=== PATIENT | female | born 1975 | race African-American/Black ===

== ENCOUNTER 2017-04-13 16:57 | Emergency (ER) | payer OTHER ==
[2017-04-13 17:24] VITALS: BP 122/71
[2017-04-13] MEDS ORDERED: IBUPROFEN 600 MG TABLET PO ONE (17:57)
[2017-04-13] MEDS ORDERED: CYCLOBENZAPRINE HCL 10 MG TABLET PO ONE (17:57)
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
== END 2017-04-13 18:11 | disposition home or self-care (01) ==
LOC: ER 16:57
DX: S39.012A Strain of muscle, fascia and tendon of lower back, initial encounter (principal); R51 Headache; M79.602 Pain in left arm; M54.2 Cervicalgia; M54.9 Dorsalgia, unspecified; M54.5 Low back pain; F17.210 Nicotine dependence, cigarettes, uncomplicated; V87.7XXA Person injured in collision between other specified motor vehicles (traffic), initial encounter
CPT/HCPCS: 99283

== ENCOUNTER 2018-11-06 04:09 | Emergency (ER) | payer OTHER ==
[2018-11-06 04:17] VITALS: BP 118/63
[2018-11-06] MEDS ORDERED: ACETAMINOPHEN 325 MG TABLET PO ONE (05:37)
--- NOTE | 2018-11-06 05:37 | ER Document Report ---
HPI - HPI Time Seen by Provider: 11/06/18 05:30 Onset: Yesterday Pain Level: 2 Context: Patient is a 43-year-old female who presents emergency department with a chief complaint of nasal congestion. She states that her symptoms started 2 days ago. She does have a migraine headache. - EENT EENT: REPORTS: Nasal Drainage-Clear, Congestion. DENIES: Sore Throat, Ear Pain - NEURO Neurology: REPORTS: Headache - CARDIOVASCULAR Cardiovascular: DENIES: Chest pain - RESPIRATORY Respiratory: REPORTS: Coughing - GASTROINTESTINAL Gastrointestinal: DENIES: Nausea, Patient vomiting, Diarrhea - REPRODUCTIVE Reproductive: DENIES: : - DERM Skin Color: Normal Past Medical History - General Information source: Patient - Social History Smoking Status: Unknown if Ever Smoked Lives with: Family Family History: Arthritis, CVA, DM, Hypertension. denies: CAD, COPD, Hyperlipidemia, Malignancy, Thyroid Disfunction Renal/ Medical History: Denies: Hx Peritoneal Dialysis Past Surgical History: Reports: Hx Section - x2 - Immunizations Immunizations up to date: Yes Hx Diphtheria, Pertussis, Tetanus Vaccination: Yes Vertical Provider Document - INFECTION CONTROL TRAVEL OUTSIDE OF THE [place] IN LAST 30 DAYS: No - HEENT HEENT: Atraumatic, Normocephalic Notes: Erythema noted to mucous membranes of bilateral nares - NECK Neck: Normal Inspection - RESPIRATORY Respiratory: Breath Sounds Normal, No Respiratory Distress - CARDIOVASCULAR Cardiovascular: Regular Rate, Regular Rhythm Pulses: Normal: Radial - GI/ABDOMEN Gastrointestinal: Abdomen Soft - MUSCULOSKELETAL/EXTREMETIES Musculoskeletal/Extremeties: FROM - NEURO Level of Consciousness: Awake, Alert, Appropriate - DERM Integumentary: Warm, Dry, No Rash Course - Re-evaluation Re-evalutation: 11/06/18 05:38 Patient's physical exam is consistent with an upper respiratory infection. I Do not suspect pneumonia, or any life-threatening etiology at this time. She will be started on Flonase and cetirizine to help with her symptoms. Verbal disc harge instructions were given to the patient. They verbalized understanding. They are stable for discharge. - Vital Signs Vital signs: Temp Pulse Resp BP Pulse Ox 98.4 F 80 17 118/63 99 11/06/18 04:16 11/06/18 04:16 11/06/18 04:16 11/06/18 04:16 02/05/19 04:16 Discharge - Discharge Clinical Impression: Upper respiratory infection Qualifiers: URI type: unspecified URI Qualified Code(s): J06.9 - Acute upper respiratory infection, unspecified Condition: Stable Additional Instructions: You were seen today in the emergency department for a headache. You have been upper respiratory viral infection. Upper respiratory viral infections can last 7-10 days. You have been prescribed cetirizine, medication to help with your symptoms. Please take 1 tablet every day. You have also been scribed Flonase for the inflammation in your nose. Please use 1 spray to each nostril twice a day. Please follow-up with your primary care provider in regards to this visit. If you develop a fever, you may take Motrin Tylenol for your symptoms. If you develop shortness of breath, or any symptoms that are worrisome to you, please return to the emergency department. Prescriptions: Cetirizine HCl [Zyrtec 10 mg Tablet] 10 mg PO DAILY #30 tablet Fluticasone Propionate [Flonase Nasal [place] 50 Mcg/[place] 16 gm] 1 spray NASL Q12 #1 inhaler Forms: Return to Work
[2018-11-06] MEDS ORDERED: CETIRIZINE 10 MG TABLET PO ONE (05:38)
== END 2018-11-06 05:59 | disposition home or self-care (01) ==
LOC: ER 04:09
DX: J06.9 Acute upper respiratory infection, unspecified (principal); R09.81 Nasal congestion; G43.909 Migraine, unspecified, not intractable, without status migrainosus
CPT/HCPCS: 99283

== ENCOUNTER 2019-07-15 20:39 | Emergency (ER) | payer OTHER ==
[2019-07-15 21:00] VITALS: BP 113/63
[2019-07-15] MEDS ORDERED: IBUPROFEN 600 MG TABLET PO ONE (22:27)
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
== END 2019-07-15 22:58 | disposition home or self-care (01) ==
LOC: ER 20:39
DX: Z04.1 Encounter for examination and observation following transport accident (principal)
CPT/HCPCS: 99281